=== PATIENT | female | born 1990 | race Caucasian/White ===

== ENCOUNTER 2021-11-03 11:46 | Emergency (ER) | payer BC, SELFPAY ==
[2021-11-03 11:46] VITALS: BP 146/90; PULSE 82; RESP 16; TEMP 36.2; O2SAT 97
--- NOTE | 2021-11-03 12:08 | ED.SKABFB ---
HPI - Skin/Abscess/Foreign Bdy General Chief complaint: Skin/Abscess/Foreign Body Stated complaint: ambulance Time Seen by Provider: 11/03/21 12:08 History of Present Illness HPI narrative: 31-year-old female patient is brought to the ER by EMS with complaints of rash over her legs mostly ankle Area for the last 2 weeks. She has experienced some pain in the area but no associated fever or chills. Patient states that she has been fighting a sinus infection for 2 weeks. She is a smoker of a pack of cigarettes a day. She reports no other areas of pressure on her body elsewhere. She reports no sore throat or difficulty breathing or swallowing. Patient does not recall any injuries or any insect bites. Related Data Home Medications Medication Instructions Recorded Confirmed escitalopram oxalate 10 mg PO DAILY 11/03/21 11/03/21 ziprasidone HCl 60 mg PO DAILY 11/03/21 11/03/21 Allergies Allergy/AdvReac Type Severity Reaction Status Date / Time Cephalosporins Allergy Severe SWELLING Verified 11/03/21 11:55 Penicillins Allergy Hives Verified 11/03/21 11:55 Review of Systems Review of Systems: All systems reviewed & are unremarkable except as noted in HPI and below PMFSH Past Medical History Medical History (Updated 11/03/21 @ 12:22 by Chantal Courtney MD) Anxiety and depression Social History Social History (Updated 11/03/21 @ 12:18 by Chantal Courtney MD) Smoking packs per day: 1 Smoking cigarettes per day: 20.0 Smoking status: Current every day smoker Alcohol intake: never Substance use: never Exam Narrative: alert female patient in no distress. Stable vital signs. Afebrile. HEENT is unremarkable at this time. Lungs are clear bilaterally. Heart tones are regular. Extremities are atraumatic. Patient does have erythema in the ankle areas left worse than the right. The left side is not circumferential but occupies at least 75% of the entire ankle and is warm to touch. There is some tenderness. There are no open areas or bruising. The right lower extremity has some rash mostly on the medial side. There are no obvious macules or papules or vesicles noted. Skin is warm and dry and skin turgor is normal. No other areas of rash are noted. Neurologic exam is grossly normal. Patient is anxious but her thought process is normal. Course Course Emergency Course: Have discussed antibiotic therapy with the patient and will start her on Bactrim. She does have an appointment with her PCP in 2 days and she has been advised to keep it. Vital Signs Vital signs: Vital Signs Temperature 36.2 C L 11/03/21 11:46 Pulse Rate 82 11/03/21 11:46 Respiratory Rate 16 11/03/21 11:46 Blood Pressure 146/90 H 11/03/21 11:46 Pulse Oximetry 97 11/03/21 11:46 Temperature 36.2 C L 11/03/21 11:46 Pulse Rate 82 11/03/21 11:46 Respiratory Rate 16 11/03/21 11:46 Blood Pressure 146/90 H 11/03/21 11:46 Pulse Oximetry 97 11/03/21 11:46 Discharge Plan Discharge Clinical Impression: Cellulitis Patient Disposition: Home, Self-Care Condition: Stable Instructions: Antibiotic Form, Cellulitis (ED) Additional Instructions: Keep the areas dry and clean Avoid excessive sweating Antibiotics as prescribed Keep the follow up with your PCP as scheduled Prescriptions: New sulfamethoxazole-trimethoprim [Bactrim DS] 800-160 mg tablet 1 tablet PO Q12H Qty: 14 RF: 0 No Action ziprasidone HCl 60 mg capsule 60 mg PO DAILY RF: 0 escitalopram oxalate 10 mg tablet 10 mg PO DAILY RF: 0 Follow-up/Referrals: UNKNOWN,DOCTOR [Primary Care Provider] -
== END 2021-11-03 12:37 | disposition home or self-care (01) ==
PROVIDERS: Emergency Provider Emergency Medicine
DX: L03.116 Cellulitis of left lower limb (principal); L03.115 Cellulitis of right lower limb; F17.210 Nicotine dependence, cigarettes, uncomplicated; F41.9 Anxiety disorder, unspecified; F32.A Depression, unspecified
CPT/HCPCS: 99283

== ENCOUNTER 2021-11-13 15:07 | Emergency (ER) | payer BC, SELFPAY ==
[2021-11-13 15:12] VITALS: BP 139/84; PULSE 93; RESP 16; TEMP 36.4; O2SAT 98
--- NOTE | 2021-11-13 15:38 | PC.NURSE ---
call for pt, not in lobby, pt left dept at [phone]
--- NOTE | 2021-11-13 15:57 | ED.LOWEXIN ---
HPI - Extremity Injury (Lower) General Chief Complaint: Extremity Injury, Lower Stated Complaint: leg pain Time Seen by Provider: 11/13/21 15:46 Source: patient Mode of arrival: ambulatory Limitations: no limitations History of Present Illness HPI Narrative: This is a 31 year old female who presents for evaluation of leg redness. Patient reports she has had bilateral leg swelling for several years. She was evaluated at [facility] on 11/03/21 for leg swelling with redness. She was prescribed Bactrim at that time for cellulitis. She reports her leg redness has significantly improved. She stopped in to ER to get another prescription of Bactrim. She reports she still has some pain and redness to her legs. She denies fever, chills, shortness of breath, chest pain, nausea or vomiting. Patient has appointment with PCP tomorrow. Related Data Home Medications Medication Instructions Recorded Confirmed escitalopram oxalate 10 mg tablet 10 mg PO DAILY 11/03/21 11/03/21 ziprasidone HCl 60 mg capsule 60 mg PO DAILY 11/03/21 11/03/21 Allergies Allergy/AdvReac Type Severity Reaction Status Date / Time Cephalosporins Allergy Severe SWELLING Verified 11/13/21 15:48 Penicillins Allergy Hives Verified 11/13/21 15:48 Review of Systems Review of Systems: All systems reviewed & are unremarkable except as noted in HPI and below Constitutional: Constitutional: Denies chills, Denies fatigue and Denies fever(s) Cardiovascular: Cardiovascular: Denies chest pain, Denies rapid heart rate and Denies radiating jaw, neck or arm pain Respiratory: Respiratory: Denies chest congestion, Denies cough and Denies dyspnea Gastrointestinal: Gastrointestinal: Denies abdominal pain, Denies bloating, Denies constipation and Denies heartburn PMFSH Past Medical History Medical History Anxiety and depression Social History Social History Smoking packs per day: 1 Smoking cigarettes per day: 20.0 Smoking status: Current every day smoker Alcohol intake: never Substance use: never Exam Const: General: no acute distress and alert Nutritional Appearance: well nourished Orientation/consciousness: patient oriented x3 Limitations: no limitations HENMT: Head: normal to inspection Eyes: Conjunctivae: conjunctivae normal Resp: Effort & Inspection: normal respiratory effort, not labored, no retractions and not tachypneic Auscultation: clear to auscultation bilaterally, breath sounds present and lung sounds not diminished Cardio: Rate: regular rate Rhythm: regular rhythm Heart sounds: no murmurs Skin: Other: on bilateral lower leg with edema there are rash that appears to be stasis dermatitis. Neuro: General: patient oriented x3, moves all extremities and CN's II-XI intact bilaterally Extrem: Other: bilateral leg edema nonpitting. Psych: Mental Status: mental status grossly normal Course Reevaluation(s) Reevaluation #1: I discussed with patient that this looks to be more dermatitis. She will follow up with PCP tomorrow . I discussed getting compression socks and elevation. Date: 11/13/21 Time: 16:12 Vital Signs Vital signs: Vital Signs Temperature 97.5 F L 11/13/21 15:12 Pulse Rate 93 11/13/21 15:12 Respiratory Rate 16 11/13/21 15:12 Blood Pressure 139/84 11/13/21 15:12 Pulse Oximetry 98 11/13/21 15:12 Oxygen Delivery Room Air 11/13/21 15:12 Temperature 97.5 F L 11/13/21 15:12 Pulse Rate 93 11/13/21 15:12 Respiratory Rate 16 11/13/21 15:12 Blood Pressure 139/84 11/13/21 15:12 Pulse Oximetry 98 11/13/21 15:12 Oxygen Delivery Room Air 11/13/21 15:12 MDM - Extremity Injury (Lower) Medical Records Attestation: I reviewed the patient's medical records. Discharge Plan Discharge Clinical Impression: Bilateral edema of lower extremity, Stasis d
== END 2021-11-13 16:28 | disposition home or self-care (01) ==
LOC: ANHED 16:22
PROVIDERS: Emergency Provider General Practice; PCP Physician Assistant
DX: I87.2 Venous insufficiency (chronic) (peripheral) (principal); R60.0 Localized edema; F41.9 Anxiety disorder, unspecified; F32.A Depression, unspecified; F17.210 Nicotine dependence, cigarettes, uncomplicated
CPT/HCPCS: 99281

== ENCOUNTER 2021-12-06 16:52 | Outpatient (CLI) | payer BC, SELFPAY ==
--- NOTE | ~2021-12-06 | XR_ITS ---
EXAMINATION: XR chest 2V DATE: 12/06/2021 17:18 INDICATION: Mild persistent asthma, cough TECHNIQUE: PA and lateral views of the chest are obtained. COMPARISON: 11/16/2013 FINDINGS: The lungs are free of acute opacities. There is no pleural effusion or pneumothorax. The ca rdiomediastinal silhouette is normal. The visualized bones and soft tissues are unremarkable. IMPRESSION: 1. No acute cardiopulmonary abnormality. Reviewed, dictated and finalized at location F.
[2021-12-06 17:12] LABS: Basophils Absolute Auto 0.13 K/mm3 (0.00-0.10); Basophils Percent Auto 0.8 % (0.0-1.0); Eosinophils Absolute Auto 0.18 K/mm3 (0.02-0.50); Eosinophils Percent Auto 1.1 % (1.0-6.0); Hematocrit 42.6 % (35.0-49.0); Hemoglobin 13.7 g/dL (12.0-15.0); Immature Granulocyte Absolute 0.21 K/mm3 (0.00-0.00); Immature Granulocyte Percent A 1.3 % (0.0-0.0); Lymphocytes Percent Auto 24.7 % (18.0-42.0); Mean Corpuscular HGB Conc 32.2 g/dL (32.0-36.0); Mean Corpuscular Volume 90.3 fL (78.0-102.0); Mean Platelet Volume 9.1 fl (9.2-11.8); Monocytes Absolute Auto 0.89 K/mm3 (0.10-0.90); Monocytes Percent Auto 5.6 % (2.0-11.0); Neutrophils Absolute Auto 10.5 K/mm3 (1.7-7.2); Neutrophils Percent Auto 66.5 % (50.0-70.0); Platelet Count Result 322 K/mm3 (150-420); Red Blood Count 4.72 M/mm3 (4.20-5.40); Red Cell Distribution Width 14.2 % (11.6-14.4); White Blood Count 15.8 K/mm3 (4.8-10.8)
[2021-12-06 17:13] LABS: Add Urine Microscopic? NO; Appearance Urine Clear (Clear); Bilirubin Urine Negative (Negative); Blood Urine Negative (Negative); Color Urine Light Yellow (Yellow); Glucose Urine UA Negative (Negative); Ketones Urine Negative (Negative); Leukocyte Esterase Ur Negative (Negative); Nitrate Urine Negative (Negative); Protein Urine Negative (Negative); Urobilinogen Urine 0.2 mg/dL (0.2-1.0)
[2021-12-06 17:33] LABS: Alanine Aminotransferase 31 U/L (14-59); Albumin Level 3.9 g/dL (3.4-5.0); Alkaline Phosphatase 149 U/L (46-116); Anion Gap 8 mmol/L (8-16); Aspartate Amino Transferase 16 U/L (15-37); Bilirubin,Total 0.3 mg/dL (0.00-1.00); Blood Urea Nitrogen 5 mg/dL (7-18); Calcium 9.3 mg/dL (8.5-10.1); Carbon Dioxide 30 mmol/L (21-32); Chloride 101 mmol/L (98-108); Estimated Glomerular Filt Rate > 60; Free T4 Free Thyroxine 0.78 ng/dL (0.76-1.46); Glucose 124 mg/dL (70-99); Osmolality Calculated 286 mOsm/kg (285-295); Potassium 3.3 mmol/L (3.5-5.1); Sodium 139 mmol/L (136-145); Thyroid Stimulating Hormone 4.41 uIU/mL (0.36-3.74); Total Protein 7.9 g/dL (6.4-8.2)
== END 2021-12-06 16:53 | disposition home or self-care (01) ==
LOC: CHSLAB 16:55
PROVIDERS: PCP Family Medicine; Visit Provider Family Medicine
DX: R03.0 Elevated blood-pressure reading, without diagnosis of hypertension (principal); R94.6 Abnormal results of thyroid function studies; J45.30 Mild persistent asthma, uncomplicated
CPT/HCPCS: 36415; 71046; 80053; 81003; 84439; 84443; 85025

== ENCOUNTER 2021-12-23 12:19 | Outpatient (CLI) | payer BC, SELFPAY ==
[2021-12-23 12:56] LABS: Anion Gap 8 mmol/L (8-16); Blood Urea Nitrogen 7 mg/dL (7-18); Calcium 8.9 mg/dL (8.5-10.1); Carbon Dioxide 27 mmol/L (21-32); Chloride 104 mmol/L (98-108); Estimated Glomerular Filt Rate > 60; Glucose 137 mg/dL (70-99); Hemoglobin A1C 6.1 % (<5.7); Osmolality Calculated 288 mOsm/kg (285-295); Potassium 3.4 mmol/L (3.5-5.1); Sodium 139 mmol/L (136-145)
== END 2021-12-23 12:20 | disposition home or self-care (01) ==
LOC: CHSCARD 12:20
PROVIDERS: PCP Family Medicine; Visit Provider Family Medicine
DX: R73.9 Hyperglycemia, unspecified (principal); E87.5 Hyperkalemia
CPT/HCPCS: 36415; 80048; 83036; 94060; 94726; 94729

== ENCOUNTER 2022-01-07 10:42 | Outpatient (CLI) | payer BC, SELFPAY ==
--- NOTE | ~2022-01-07 | US_ITS ---
EXAMINATION: US pelvic complete w TV DATE: 01/07/2022 11:26 INDICATION: Cervical cyst, pelvic pain TECHNIQUE: Multiple transabdominal and endovaginal sonographic images of the pelvis were obtained. COMPARISON: 01/25/2009 FINDINGS: The uterus measures 10.3 x 5.0 x 4.6 cm. The endometrial complex measures 10 mm. The right ovary measures 2.4 x 2.9 x 1.7 cm. The left ovary measures 2.2 x 2.3 x 1.6 cm. There is normal vascul ar flow in the ovaries. There is no free fluid in the pelvis. There is a 4 mm nabothian cyst of the c ervix. IMPRESSION: 1. 4 mm nabothian cyst of the cervix. No sonographic correlate for pelvic pain. Reviewed, dictated and finalized at location B.
[2022-01-07 11:19] LABS: Anion Gap 10 mmol/L (8-16); Blood Urea Nitrogen 14 mg/dL (7-18); Calcium 9.5 mg/dL (8.5-10.1); Carbon Dioxide 30 mmol/L (21-32); Chloride 95 mmol/L (98-108); Estimated Glomerular Filt Rate > 60; Glucose 113 mg/dL (70-99); Osmolality Calculated 281 mOsm/kg (285-295); Potassium 3.1 mmol/L (3.5-5.1); Sodium 135 mmol/L (136-145)
== END 2022-01-07 10:43 | disposition home or self-care (01) ==
LOC: CHSLAB 10:47
PROVIDERS: PCP Family Medicine; Visit Provider Family Medicine
DX: R10.2 Pelvic and perineal pain (principal); N88.8 Other specified noninflammatory disorders of cervix uteri; I10 Essential (primary) hypertension
CPT/HCPCS: 36415; 76830; 76856; 80048